=== PATIENT | female | born 1995 | race Caucasian/White ===

== ENCOUNTER 2020-01-29 06:23 | Observation (INO) | payer SELFPAY ==
[~2020-01-29] VITALS: Ht 157.5 cm; Wt 124.5 kg
[2020-01-29] MEDS ORDERED: IV NORMAL SALINE 1000ML BAG 1,000 ML IV ONE (06:45)
[2020-01-29 07:54] LABS: BILIRUBIN,URINE NEGATIVE (NEG); CLARITY,URINE CLEAR; COLOR,URINE YELLOW; NITRITE,URINE NEGATIVE (NEG); PH,URINE 5.5 (<5.0-8.0); PROTEIN,URINE 30 mg/dL (NEG-TRACE); UROBILINOGEN,URINE 0.2 mg/dL (0.2 mg/dL)
[2020-01-29 07:56] LABS: BASO # 0.1 x10^3/uL (0.0-0.2); BASO % 1 % (0-3); EOS # 0.1 x10^3/uL (0.0-0.7); EOS % 1 % (0-3); HEMATOCRIT 42.2 % (36.0-47.0); HEMOGLOBIN 13.8 g/dL (12.0-15.5); LYMPH % 27 % (24-48); MEAN CORPUSCULAR HEMOGLOBIN 30 pg (25-35); MEAN CORPUSCULAR HGB CONC 33 g/dL (31-37); MEAN CORPUSCULAR VOLUME 90 fL (79-100); MONO % 7 % (0-9); NEUT # 9.9 x10^3/uL (1.8-7.7); NEUT % 66 % (31-73); PLATELET COUNT 401 x10^3/uL (140-400); RED BLOOD COUNT 4.67 x10^6/uL (3.50-5.40); RED CELL DISTRIBUTION WIDTH 13.6 % (11.5-14.5); WHITE BLOOD COUNT 15.1 x10^3/uL (4.0-11.0)
--- NOTE | 2020-01-29 08:00 | ED.ADGEN ---
Past Medical History Past Medical History: Anxiety, Depression, GERD, Other Additional Past Medical Histor: PCOS Past Surgical History: Tonsillectomy, Other Additional Past Surgical Histo: Pelvis Fx repair Smoking Status: Never Smoker Alcohol Use: None General Adult EDM: Chief Complaint: SEIZURE HPI: HPI: Patient is a 24 year old female at approximately 6 weeks gestational age with the first . Per grandmother she had a witnessed seizure-like activity just prior to arrival. Patient has no seizure history, no history of traumatic brain injury, no recent illness.. Per EMS the patient was postictal on arrival. She is recently , has a history of PCOS and takes Metformin. Patient had second seizure in emergency department approximately 1 hour after a rrival. Patient had told her grandmother that her left leg felt weird and then her head felt weird and then began seizing for about 15 to 30 seconds. Was again postictal afterwards. Episode witnessed by nursing consistent with grand mal seizure. Review of Systems: Review of Systems: Constitutional: Denies fever or chills. [] Eyes: Denies change in visual acuity. [] HENT: Denies nasal congestion or sore throat. [] Respiratory: Denies cough or shortness of breath. [] Cardiovascular: Denies chest pain or edema. [] GI: Denies abdominal pain, nausea, vomiting, bloody stools or diarrhea. [] : Denies dysuria. [] Musculoskeletal: Denies back pain or joint pain. [] Integument: Denies rash. [] Neurologic: Denies headache, focal weakness or sensory changes. [] Endocrine: Denies polyuria or polydipsia. [] Lymphatic: Denies swollen glands. [] Psychiatric: Denies depression or anxiety. [] Current Medications: Current Medications Medications (Trade) Dose Ordered Sig/Vannessa Start Time Stop Time Status Last Admin Dose Admin Levetiracetam 500 mg/Dextrose 105 ml @ 420 mls/hr 1X ONCE 01/29/20 10:00 01/29/20 10:14 Lorazepam (Ativan Inj) 4 mg 1X ONCE 01/29/20 08:15 01/29/20 08:17 DC 01/29/20 08:10 4 MG Sodium Chloride 1,000 ml @ 1,000 mls/hr 1X ONCE 01/29/20 06:45 01/29/20 07:44 DC 01/29/20 08:16 1,000 MLS/HR Allergies: Allergies: Allergies Coded Allergies Type Severity Reaction Last Updated Verified No Known Drug Allergies 01/29/20 No Physical Exam: PE: Constitutional: Well developed, well nourished, no acute distress, non-toxic appearance. [] HENT: Normocephalic, atraumatic, bilateral external ears normal, oropharynx moist, no oral exudates, nose normal. [] Eyes: PERRLA, EOMI, conjunctiva normal, no discharge. [] Neck: Normal range of motion, no tenderness, supple, no stridor. [] Cardiovascular:Heart rate regular rhythm, no murmur [] Lungs & Thorax: Bilateral breath sounds clear to auscultation [] Abdomen: Bowel sounds normal, soft, no tenderness, no masses, no pulsatile masses. [] Skin: Warm, dry, no erythema, no rash. [] Back: No tenderness, no CVA tenderness. [] Extremities: No tenderness, no cyanosis, no clubbing, ROM intact, no edema. [] Neurologic: Alert and oriented X 3, normal motor function, normal sensory fun ction, no focal deficits noted. [] Psychologic: Affect normal, judgement normal, mood normal. [] Current Patient Data: Labs: Laboratory Tests Test 01/29/20 06:30 01/29/20 06:45 01/29/20 06:52 Urine Collection Type Unknown Urine Color Yellow Urine Clarity Clear Urine pH 5.5 (<5.0-8.0) Urine Specific [place] 1.020 (1.000-1.030) Urine Protein 30 mg/dL (NEG-TRACE) Urine Glucose (UA) Negative mg/dL (NEG) Urine Ketones (Stick) Trace mg/dL (NEG) Urine Blood Negative (NEG) Urine Nitrite Negative (NEG) Urine Bilirubin Negative (NEG) Urine Urobilinogen Dipstick 0.2 mg/dL (0.2 mg/dL) Urine Leukocyte Esterase Negative (NEG) Urine RBC 0 /HPF (0-2) Urine WBC Occ /HPF (0-4) Urine Squamous Epithelial Cells Few /LPF Urine Bacteria 0 /HPF (0-FEW) Urine Mucus Mod /LPF Urine Opiates Screen Neg (NEG) Urine Methadone Screen Neg (NEG) Urine Barbiturates Neg (NEG) Urine Phencyclidine Screen Neg (NEG) Urine Amphetamine/Methamphetamine Neg (NEG) Urine Benzodiazepines Screen Neg (NEG) Urine Cocaine Screen Neg (NEG) Urine Cannabinoids Screen Pos (NEG) Urine Ethyl Alcohol Neg (NEG) White Blood Count 15.1 x10^3/uL (4.0-11.0) H Red Blood Count 4.67 x10^6/uL (3.50-5.40) Hemoglobin 13.8 g/dL (12.0-15.5) Hematocrit 42.2 % (36.0-47.0) Mean Corpuscular Volume 90 fL (79-100) Mean Corpuscular Hemoglobin 30 pg (25-35) Mean Corpuscular Hemoglobin Concent 33 g/dL (31-37) Red Cell Distribution Width 13.6 % (11.5-14.5) Platelet Count 401 x10^3/uL (140-400) H Neutrophils (%) (Auto) 66 % (31-73) Lymphocytes (%) (Auto) 27 % (24-48) Monocytes (%) (Auto) 7 % (0-9) Eosinophils (%) (Auto) 1 % (0-3) Basophils (%) (Auto) 1 % (0-3) Neutrophils # (Auto) 9.9 x10^3/uL (1.8-7.7) H Lymphocytes # (Auto) 4.0 x10^3/uL (1.0-4.8) Monocytes # (Auto) 1.0 x10^3/uL (0.0-1.1) Eosinophils # (Auto) 0.1 x10^3/uL (0.0-0.7) Basophils # (Auto) 0.1 x10^3/uL (0.0-0.2) Maternal Serum HCG Beta Subunit 6360 mIU/mL (0-5) H Sodium Level 134 mmol/L (136-145) L Potassium Level 3.7 mmol/L (3.5-5.1) Chloride Level 100 mmol/L (98-107) Carbon Dioxide Level 21 mmol/L (21-32) Anion Gap 13 (6-14) Blood Urea Nitrogen 6 mg/dL (7-20) L Creatinine 0.7 mg/dL (0.6-1.0) Estimated GFR (Cockcroft-Gault) 101.1 BUN/Creatinine Ratio 9 (6-20) Glucose Level 116 mg/dL (70-99) H Calcium Level 9.0 mg/dL (8.5-10.1) Magnesium Level 2.4 mg/dL (1.8-2.4) Total Bilirubin 0.2 mg/dL (0.2-1.0) Aspartate Amino Transferase (AST) 21 U/L (15-37) Alanine Aminotransferase (ALT) 40 U/L (14-59) Alkaline Phosphatase 57 U/L (46-116) Total Protein 7.8 g/dL (6.4-8.2) Albumin 3.9 g/dL (3.4-5.0) Albumin/Globulin Ratio 1.0 (1.0-1.7) POC Urine HCG, Qualitative Hcg positive (Negative) Laboratory Tests 01/29/20 06:45 Laboratory Tests 01/29/20 06:45 Vital Signs: Vital Signs Date Time Temp Pulse Resp B/P (MAP) Pulse Ox O2 Delivery O2 Flow Rate FiO2 01/29/20 06:25 97.9 129 20 136/63 (87) 100 Room Air 97.9 EKG: EKG: Sinus tachycardia, normal axis, no ST elevation or depression, borderline QT interval Heart Score: Risk Factors: Risk Factors: DM, Current or recent (<one month) smoker, HTN, HLP, family history of CAD, obesity. Risk Scores: Score 0 - 3: 2.5% MACE over next 6 weeks - Discharge Home Score 4 - 6: 20.3% MACE over next 6 weeks - Admit for Clinical Observation Score 7 - 10: 72.7% MACE over next 6 weeks - Early Invasive Strategies Radiology/Procedures: Radiology/Procedures: CT HEAD WO CONTRAST Date: 01/29/2020 6:33 AM Clinical Indication: seizure Comparison: None. Technique: 5 mm axial tomographic images were obtained of the head without contrast. These were viewed on brain and bone windows. One or more of the following dose reduction techniques were utilized: Automated exposure control (AEC), Adjustment of mA and/or kV according to patient size, Use of iterative reconstruction technique such as ASiR, CT scan done according to ALARA and image gently/image wisely Findings: The brain parenchyma is normal in attenuation. No intra- or extra-axial mass or fluid collection. No acute hemorrhage. The ventricles are normal in size, shape, and morphology. The keenan-white matter junction is normal. The subarachnoid cisterns are patent. The visualized paranasal sinuses are normal. The visualized portions of the orbits and globes are normal. The mastoid air cells are clear. The farmworker grain topogram shows no lytic lesion or fracture. Impression: No acute intracranial process. [] Course & Med Decision Making: Course & Med Decision Making Pertinent Labs and Imaging studies reviewed. (See chart for details) Discussed with neurology and will dose with Keppra as it is safe in . Admit for observation for recurrent seizures. Lab work and CT head unremarkable, borderline QT prolongation on ECG. [] Dragon Disclaimer: Dragon Disclaimer: This electronic medical record was generated, in whole or in part, using a voice recognition dictation system. Departure Departure Impression: Primary Impression: Additional Impression: Seizure grand mal Disposition: 09 ADMITTED INPT THIS HOSP Admitting Physician: ISAIAS Condition: STABLE Referrals: NO PCP (PCP) Problem Qualifiers SEBASTIEN GIRALDO MD Jan 29, 2020 08:00
[2020-01-29 08:02] LABS: CREATININE 0.7 mg/dL (0.6-1.0); GFR 101.1; POTASSIUM 3.7 mmol/L (3.5-5.1)
[2020-01-29 08:08] LABS: ALBUMIN 3.9 g/dL (3.4-5.0); MAGNESIUM 2.4 mg/dL (1.8-2.4); TOTAL BILIRUBIN 0.2 mg/dL (0.2-1.0); TOTAL PROTEIN 7.8 g/dL (6.4-8.2)
[2020-01-29 08:10] LABS: BARBITURATES NEG (NEG); BENZODIAZEPINES NEG (NEG); CANNABINOIDS POS (NEG); COCAINE NEG (NEG); METHADONE NEG (NEG); OPIATES NEG (NEG); PHENCYCLIDINE NEG (NEG)
[2020-01-29 08:11] LABS: BACTERIA,URINE 0 /HPF (0-FEW); RBC,URINE 0 /HPF (0-2); WBC,URINE OCC /HPF (0-4)
[2020-01-29 08:12] LABS: AMPHETAMINE/METHAMPHETAMINE NEG (NEG)
--- NOTE | 2020-01-29 08:22 | RAD ---
CT HEAD WO CONTRAST Date: 01/29/2020 6:33 AM Clinical Indication: seizure Comparison: None. Technique: 5 mm axial tomographic images were obtained of the head without contrast. These were viewed on brain and bone windows. One or more of the following dose reduction techniques were utilized: Automated exposure control (AEC), Adjustment of mA and/or kV according to patient size, Use of iterative reconstruction technique such as ASiR, CT scan done according to ALARA and image gently/image wisely Findings: The brain parenchyma is normal in attenuation. No intra- or extra-axial mass or fluid collection. No acute hemorrhage. The ventricles are normal in size, shape, and morphology. The keenan-white matter junction is normal. The subarachnoid cisterns are patent. The visualized paranasal sinuses are normal. The visualized portions of the orbits and globes are normal. The mastoid air cells are clear. The lead advisor topogram shows no lytic lesion or fracture. Impression: No acute intracranial process. Electronically signed by: Donavon Sanchez MD (01/29/2020 8:19 AM) [id number]
[2020-01-29] MEDS ORDERED: ONDANSETRON PF 4 MG/2 ML VIAL. IV PRN (09:45)
[2020-01-29] MEDS ORDERED: ACETAMINOPHEN 325 MG TABLET. PO PRN ×2 (09:45→11:30)
[2020-01-29] MEDS ORDERED: levETIRAcetam 500 MG in IV DEXTROSE 5% 100ML 100 ML IV ONE (10:00)
[2020-01-29] MEDS ORDERED: IV DEXTROSE 5 %-0.45 % NACL 1,000 ML IV SCH (11:20)
[2020-01-29] MEDS ORDERED: ONDANSETRON PF 4 MG/2 ML VIAL. IVP PRN (11:30)
[2020-01-29] MEDS ORDERED: DOCUSATE SODIUM 100 MG CAPSULE. PO PRN (11:30)
[2020-01-29] MEDS ORDERED: SENNOSIDES 8.6 MG TABLET PO PRN (11:30)
[2020-01-29] MEDS ORDERED: DEXTROSE 50% 25 GM / 50ML DISP.SYRIN. IV PRN (11:30)
--- NOTE | 2020-01-29 11:30 | PDOC1 ---
History and Physical Date of Service: DOS: DATE: 01/29/20 TIME: 11:25 Chief Complaint: Chief Complain: Seizures History of Present Illness: HPI: 24 year old female at approximately 6 weeks gestational age with the first . Per grandmother she had a witnessed seizure-like activity just prior to arrival. Patient has no seizure history, no history of traumatic brain injury, no recent illness.. Per EMS the patient was postictal on arrival. She is recently , has a history of PCOS and takes Metformin. Patient had second seizure in emergency department approximately 1 hour after arrival. Patient had told her grandmother that her left leg felt weird and then her head felt weird and then began seizing for about 15 to 30 seconds. Was again postictal afterwards. Episode witnessed by nursing consistent with grand mal seizure. Keppra IV loading dose was given in the ED. And neurology was consulted. Seizure precaution was activated. When further questioned patient stated that she does not remember having any seizures in the past and is unsure whether she has a history of them as well. When asked about her marijuana use, patient states that she does use a vape pen with oils but is unsure whether the marijuana is synthetic or natural. Past Medical/Surgical History: PMH/PSH: Past Medical History: Anxiety, Depression, GERD, PCOS Past Surgical History: Tonsillectomy, Pelvis Fx repair Allergies: Allergies: Coded Allergies: No Known Drug Allergies (Unverified , 01/29/20) Family History: Family History: Reviewed and no relevant findings Social History: Social History: Smoking Status: Never Smoker, Cannabinoid use via Vape pen Alcohol Use: None Current Medications: Current Medications Current Medications Sodium Chloride 1,000 ml @ 1,000 mls/hr 1X ONCE IV Last administered on 01/29/20at 08:16; Start 01/29/20 at 06:45; Stop 01/29/20 at 07:44; Status DC Lorazepam (Ativan Inj) 4 mg 1X ONCE IVP Last administered on 01/29/20at 08:10; Start 01/29/20 at 08:15; Stop 01/29/20 at 08:17; Status DC Levetiracetam 500 mg/Dextrose 105 ml @ 420 mls/hr Q12HR IV ; Start 01/29/20 at 21:00; Status UNV Levetiracetam 500 mg/Dextrose 105 ml @ 420 mls/hr 1X ONCE IV Last administered on 01/29/20at 09:57; Start 01/29/20 at 10:00; Stop 01/29/20 at 10:14; Status DC Ondansetron HCl (Zofran) 4 mg PRN Q8HRS PRN IV NAUSEA/VOMITING; Start 01/29/20 at 09:45; Stop 01/30/20 at 09:44 Acetaminophen (Tylenol) 650 mg PRN Q4HRS PRN PO FEVER > 100.3'F; Start 01/29/20 at 09:45; Stop 01/30/20 at 09:44 ROS: Review of Systems Review of System REVIEW OF SYSTEMS: GENERAL: Denies weakness SKIN: No bruising, hair changes or rashes. EYES: No blurred, double or loss of vision. NOSE AND THROAT: No history of nosebleeds, hoarseness or sore throat. HEART: No history of palpitations, chest pain or shortness of breath on exertion. LUNGS: Denies cough, hemoptysis, wheezing or shortness of breath. GASTROINTESTINAL: Denies changes in appetite, nausea, vomiting, diarrhea or constipation. GENITOURINARY: No history of frequency, urgency, hesitancy or nocturia. NEUROLOGIC: Denies history of numbness, tingling, or tremor. PSYCHIATRIC: No history of panic, anxiety or depression. ENDOCRINE: No history of heat or cold intolerance, polyuria or polydipsia. EXTREMITIES: Denies joint pain, pain on walking or stiffness. Physical Exam: Vital Signs: Vital Signs Date Time Temp Pulse Resp B/P (MAP) Pulse Ox O2 Delivery O2 Flow Rate FiO2 01/29/20 06:25 97.9 129 20 136/63 (87) 100 Room Air 97.9 Physcial Exam: GEN: No apparent distress. Alert and oriented HEENT: Normal cephalic, atraumatic, external auditory canals are patent EYES: Extraocular muscles are intact, pupil are equally round and reactive to light and accommodation MUSCULOSKELETAL: Well developed , well nourished, good range of motion ENDOCRINE: No thyromegaly was palpated LYMPHATICS: No cervical chain or axillary nodes were noted HEMATOPOIETIC: No bruising NECK: Supple, no JVD, no thyromegaly was noted LUNGS: Clear to auscultation in all lung corral without rhonchi or wheezing HEART: RRR, S!, S2 present. Peripheral pulses intact, no obvious murmurs noted ABDOMEN: Soft, nontender. Positive bowel sounds, no organomegaly, normal bowel sounds EXTREMITIES: Without clubbing, cyanosis, or edema. Pedal pulses intact. Negative Homans sign NEUROLOGIC: Normal speech and tone. A&O x 3, moves all extremities, no obvious focal deficits PSYCHIATRIC: Normal affect, normal mood. Stable SKIN: No ulcerations or rashes, good skin turgor, no jaundice VASCULAR: Good capillary refill, neurovascular bundle appears to be intact Labs: Labs: Laboratory Tests Test 01/29/20 06:30 01/29/20 06:45 01/29/20 06:52 Urine Collection Type Unknown Urine Color Yellow Urine Clarity Clear Urine pH 5.5 (<5.0-8.0) Urine Specific [place] 1.020 (1.000-1.030) Urine Protein 30 mg/dL (NEG-TRACE) Urine Glucose (UA) Negative mg/dL (NEG) Urine Ketones (Stick) Trace mg/dL (NEG) Urine Blood Negative (NEG) Urine Nitrite Negative (NEG) Urine Bilirubin Negative (NEG) Urine Urobilinogen Dipstick 0.2 mg/dL (0.2 mg/dL) Urine Leukocyte Esterase Negative (NEG) Urine RBC 0 /HPF (0-2) Urine WBC Occ /HPF (0-4) Urine Squamous Epithelial Cells Few /LPF Urine Bacteria 0 /HPF (0-FEW) Urine Mucus Mod /LPF Urine Opiates Screen Neg (NEG) Urine Methadone Screen Neg (NEG) Urine Barbiturates Neg (NEG) Urine Phencyclidine Screen Neg (NEG) Urine Amphetamine/Methamphetamine Neg (NEG) Urine Benzodiazepines Screen Neg (NEG) Urine Cocaine Screen Neg (NEG) Urine Cannabinoids Screen Pos (NEG) Urine Ethyl Alcohol Neg (NEG) White Blood Count 15.1 x10^3/uL (4.0-11.0) Red Blood Count 4.67 x10^6/uL (3.50-5.40) Hemoglobin 13.8 g/dL (12.0-15.5) Hematocrit 42.2 % (36.0-47.0) Mean Corpuscular Volume 90 fL (79-100) Mean Corpuscular Hemoglobin 30 pg (25-35) Mean Corpuscular Hemoglobin Concent 33 g/dL (31-37) Red Cell Distribution Width 13.6 % (11.5-14.5) Platelet Count 401 x10^3/uL (140-400) Neutrophils (%) (Auto) 66 % (31-73) Lymphocytes (%) (Auto) 27 % (24-48) Monocytes (%) (Auto) 7 % (0-9) Eosinophils (%) (Auto) 1 % (0-3) Basophils (%) (Auto) 1 % (0-3) Neutrophils # (Auto) 9.9 x10^3/uL (1.8-7.7) Lymphocytes # (Auto) 4.0 x10^3/uL (1.0-4.8) Monocytes # (Auto) 1.0 x10^3/uL (0.0-1.1) Eosinophils # (Auto) 0.1 x10^3/uL (0.0-0.7) Basophils # (Auto) 0.1 x10^3/uL (0.0-0.2) Maternal Serum HCG Beta Subunit 6360 mIU/mL (0-5) Sodium Level 134 mmol/L (136-145) Potassium Level 3.7 mmol/L (3.5-5.1) Chloride Level 100 mmol/L (98-107) Carbon Dioxide Level 21 mmol/L (21-32) Anion Gap 13 (6-14) Blood Urea Nitrogen 6 mg/dL (7-20) Creatinine 0.7 mg/dL (0.6-1.0) Estimated GFR (Cockcroft-Gault) 101.1 BUN/Creatinine Ratio 9 (6-20) Glucose Level 116 mg/dL (70-99) Calcium Level 9.0 mg/dL (8.5-10.1) Magnesium Level 2.4 mg/dL (1.8-2.4) Total Bilirubin 0.2 mg/dL (0.2-1.0) Aspartate Amino Transf (AST/SGOT) 21 U/L (15-37) Alanine Aminotransferase (ALT/SGPT) 40 U/L (14-59) Alkaline Phosphatase 57 U/L (46-116) Total Protein 7.8 g/dL (6.4-8.2) Albumin 3.9 g/dL (3.4-5.0) Albumin/Globulin Ratio 1.0 (1.0-1.7) Bedside Urine HCG, Qualitative Hcg positive (Negative) Laboratory Tests Test 01/29/20 06:30 01/29/20 06:45 01/29/20 06:52 Urine Collection Type Unknown Urine Color Yellow Urine Clarity Clear Urine pH 5.5 (<5.0-8.0) Urine Specific [place] 1.020 (1.000-1.030) Urine Protein 30 mg/dL (NEG-TRACE) Urine Glucose (UA) Negative mg/dL (NEG) Urine Ketones (Stick) Trace mg/dL (NEG) Urine Blood Negative (NEG) Urine Nitrite Negative (NEG) Urine Bilirubin Negative (NEG) Urine Urobilinogen Dipstick 0.2 mg/dL (0.2 mg/dL) Urine Leukocyte Esterase Negative (NEG) Urine RBC 0 /HPF (0-2) Urine WBC Occ /HPF (0-4) Urine Squamous Epithelial Cells Few /LPF Urine Bacteria 0 /HPF (0-FEW) Urine Mucus Mod /LPF Urine Opiates Screen Neg (NEG) Urine Methadone Screen Neg (NEG) Urine Barbiturates Neg (NEG) Urine Phencyclidine Screen Neg (NEG) Urine Amphetamine/Methamphetamine Neg (NEG) Urine Benzodiazepines Screen Neg (NEG) Urine Cocaine Screen Neg (NEG) Urine Cannabinoids Screen Pos (NEG) Urine Ethyl Alcohol Neg (NEG) White Blood Count 15.1 x10^3/uL (4.0-11.0) Red Blood Count 4.67 x10^6/uL (3.50-5.40) Hemoglobin 13.8 g/dL (12.0-15.5) Hematocrit 42.2 % (36.0-47.0) Mean Corpuscular Volume 90 fL (79-100) Mean Corpuscular Hemoglobin 30 pg (25-35) Mean Corpuscular Hemoglobin Concent 33 g/dL (31-37) Red Cell Distribution Width 13.6 % (11.5-14.5) Platelet Count 401 x10^3/uL (140-400) Neutrophils (%) (Auto) 66 % (31-73) Lymphocytes (%) (Auto) 27 % (24-48) Monocytes (%) (Auto) 7 % (0-9) Eosinophils (%) (Auto) 1 % (0-3) Basophils (%) (Auto) 1 % (0-3) Neutrophils # (Auto) 9.9 x10^3/uL (1.8-7.7) Lymphocytes # (Auto) 4.0 x10^3/uL (1.0-4.8) Monocytes # (Auto) 1.0 x10^3/uL (0.0-1.1) Eosinophils # (Auto) 0.1 x10^3/uL (0.0-0.7) Basophils # (Auto) 0.1 x10^3/uL (0.0-0.2) Maternal Serum HCG Beta Subunit 6360 mIU/mL (0-5) Sodium Level 134 mmol/L (136-145) Potassium Level 3.7 mmol/L (3.5-5.1) Chloride Level 100 mmol/L (98-107) Carbon Dioxide Level 21 mmol/L (21-32) Anion Gap 13 (6-14) Blood Urea Nitrogen 6 mg/dL (7-20) Creatinine 0.7 mg/dL (0.6-1.0) Estimated GFR (Cockcroft-Gault) 101.1 BUN/Creatinine Ratio 9 (6-20) Glucose Level 116 mg/dL (70-99) Calcium Level 9.0 mg/dL (8.5-10.1) Magnesium Level 2.4 mg/dL (1.8-2.4) Total Bilirubin 0.2 mg/dL (0.2-1.0) Aspartate Amino Transf (AST/SGOT) 21 U/L (15-37) Alanine Aminotransferase (ALT/SGPT) 40 U/L (14-59) Alkaline Phosphatase 57 U/L (46-116) Total Protein 7.8 g/dL (6.4-8.2) Albumin 3.9 g/dL (3.4-5.0) Albumin/Globulin Ratio 1.0 (1.0-1.7) Bedside Urine HCG, Qualitative Hcg positive (Negative) Images: Images CT headno acute intracranial process Assessment/Plan Assessment/Plan Status epilepticus likely due to synthetic marijuana Cannabinoid abuse First trimester Admit to medicine for further management Neurology consult IV Keppra loading dose and maintenance Ambulation for DVT prophylaxis Protonix GI prophylaxis ADA diet Full code Discussed with RN and SW Disposition pending neurology evaluation Surrogate decision maker is Carline Shea Justifications for Admission Other Justification Seizure JESSICA HAWKINS MD Jan 29, 2020 11:30
--- NOTE | 2020-01-29 12:47 | PDOC2 ---
NEUROLOGY CONSULT Date of Service DOS: DATE: 01/29/20 TIME: 12:43 Reason for Consult Reason for Consult: Seizure Referring Physician Referring Physician: Dr. Mitchell Source Source: Caregiver (Grandmother), Chart review, Patient History of Present Illness History of Present Illness The patient is a 24-year-old right-handed female visiting her with her grandmother from [place]. Patient had a witnessed seizure this morning and again a second 1 in the emergency department. Patient had a premonition of paresthesias before the second seizure. She was postictal. She is 6 weeks . There is no history of stroke, seizure, head injury, or family history of seizure. I discussed the case, the patient has received IV Keppra. 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, rare marijuana, no alcohol or tobacco, single Current Medications Current Medications Current Medications Sodium Chloride 1,000 ml @ 1,000 mls/hr 1X ONCE IV Last administered on 01/29/20at 08:16; Start 01/29/20 at 06:45; Stop 01/29/20 at 07:44; Status DC Lorazepam (Ativan Inj) 4 mg 1X ONCE IVP Last administered on 01/29/20at 08:10; Start 01/29/20 at 08:15; Stop 01/29/20 at 08:17; Status DC Levetiracetam 500 mg/Dextrose 105 ml @ 420 mls/hr Q12HR IV ; Start 01/29/20 at 21:00 Levetiracetam 500 mg/Dextrose 105 ml @ 420 mls/hr 1X ONCE IV Last administered on 01/29/20at 09:57; Start 01/29/20 at 10:00; Stop 01/29/20 at 10:14; Status DC Ondansetron HCl (Zofran) 4 mg PRN Q8HRS PRN IV NAUSEA/VOMITING; Start 01/29/20 at 09:45; Stop 01/30/20 at 09:44 Acetaminophen (Tylenol) 650 mg PRN Q4HRS PRN PO FEVER > 100.3'F; Start 01/29/20 at 09:45; Stop 01/30/20 at 09:44 Sennosides (Senna) 17.2 mg PRN BID PRN PO CONSTIPATION; Start 01/29/20 at 11:30 Docusate Sodium (Colace) 100 mg PRN DAILY PRN PO HARD STOOLS; Start 01/29/20 at 11:30 Ondansetron HCl (Zofran) 4 mg PRN Q6HRS PRN IVP NAUSEA/VOMITING; Start 01/29/20 at 11:30 Dextrose (Dextrose 50%-Water Syringe) 12.5 gm PRN Q15MIN PRN IV SEE COMMENTS; Start 01/29/20 at 11:30 Dextrose/Sodium Chloride 1,000 ml @ 100 mls/hr Q10H IV ; Start 01/29/20 at 11:20 Acetaminophen (Tylenol) 650 mg PRN Q4HRS PRN PO TEMP OVER 100.4F OR MILD PAIN; Start 01/29/20 at 11:30 Lorazepam (Ativan Inj) 4 mg PRN Q4HRS PRN IVP SEIZURE; Start 01/29/20 at 11:30 Allergies Allergies: Coded Allergies: No Known Drug Allergies (Unverified , 01/29/20) ROS Review of System Negative for fever, chills, weight loss, shortness of breath, chest pain, indigestion, hematochezia, melena, and dysuria. Full 14-point review of systems is negative. Physical Exam Physical Examination General: Well-developed, well-nourished white female in no acute distress HEENT: Normocephalic andatraumatic. Tympanic membranes clear.Temporal arteri espulsatile and nontender.Fundoscopic exam unremarkable Neck: Supple without bruit, no meningismus Musculoskeletal: Stability:see neurologic. Gait exam:see neurologic. Tone:see neurologic.Strength:see neurologic. Neurological: Mental Status:intact, orientation, memory, attention span/concentration, language, fund of knowledge normal, a little groggy and unclear with history. Cranial Nerves:Pupils equal and reactive to light, extraocular movements areintact, visual corral are full to confrontation. Facial sensation is normal. There is no facial asymmetry. Vestibulo-ocular reflex is intact. Palate elevates and tongue protrudes in midline. All other cranial related problems are negative except as mentioned before.Reflexes:2+ and symmetric with flexor plantar responses. Motor:5/5 strength with normal tone and bulk. Coordination:Finger- nose finger and [id number] testing are normal. Rapid alternating movements and fine finger movements are intact. Gait:Not tested. Sensory:Normal pinprick, vibration, light touch, proprioception. Vitals VITALS Vital Signs Date Time Temp Pulse Resp B/P (MAP) Pulse Ox O2 Delivery O2 Flow Rate FiO2 01/29/20 06:25 97.9 129 20 136/63 (87) 100 Room Air 97.9 Labs Labs Laboratory Tests Test 01/29/20 06:30 01/29/20 06:45 01/29/20 06:52 Urine Collection Type Unknown Urine Color Yellow Urine Clarity Clear Urine pH 5.5 (<5.0-8.0) Urine Specific [place] 1.020 (1.000-1.030) Urine Protein 30 mg/dL (NEG-TRACE) Urine Glucose (UA) Negative mg/dL (NEG) Urine Ketones (Stick) Trace mg/dL (NEG) Urine Blood Negative (NEG) Urine Nitrite Negative (NEG) Urine Bilirubin Negative (NEG) Urine Urobilinogen Dipstick 0.2 mg/dL (0.2 mg/dL) Urine Leukocyte Esterase Negative (NEG) Urine RBC 0 /HPF (0-2) Urine WBC Occ /HPF (0-4) Urine Squamous Epithelial Cells Few /LPF Urine Bacteria 0 /HPF (0-FEW) Urine Mucus Mod /LPF Urine Opiates Screen Neg (NEG) Urine Methadone Screen Neg (NEG) Urine Barbiturates Neg (NEG) Urine Phencyclidine Screen Neg (NEG) Urine Amphetamine/Methamphetamine Neg (NEG) Urine Benzodiazepines Screen Neg (NEG) Urine Cocaine Screen Neg (NEG) Urine Cannabinoids Screen Pos (NEG) Urine Ethyl Alcohol Neg (NEG) White Blood Count 15.1 x10^3/uL (4.0-11.0) Red Blood Count 4.67 x10^6/uL (3.50-5.40) Hemoglobin 13.8 g/dL (12.0-15.5) Hematocrit 42.2 % (36.0-47.0) Mean Corpuscular Volume 90 fL (79-100) Mean Corpuscular Hemoglobin 30 pg (25-35) Mean Corpuscular Hemoglobin Concent 33 g/dL (31-37) Red Cell Distribution Width 13.6 % (11.5-14.5) Platelet Count 401 x10^3/uL (140-400) Neutrophils (%) (Auto) 66 % (31-73) Lymphocytes (%) (Auto) 27 % (24-48) Monocytes (%) (Auto) 7 % (0-9) Eosinophils (%) (Auto) 1 % (0-3) Basophils (%) (Auto) 1 % (0-3) Neutrophils # (Auto) 9.9 x10^3/uL (1.8-7.7) Lymphocytes # (Auto) 4.0 x10^3/uL (1.0-4.8) Monocytes # (Auto) 1.0 x10^3/uL (0.0-1.1) Eosinophils # (Auto) 0.1 x10^3/uL (0.0-0.7) Basophils # (Auto) 0.1 x10^3/uL (0.0-0.2) Maternal Serum HCG Beta Subunit 6360 mIU/mL (0-5) Sodium Level 134 mmol/L (136-145) Potassium Level 3.7 mmol/L (3.5-5.1) Chloride Level 100 mmol/L (98-107) Carbon Dioxide Level 21 mmol/L (21-32) Anion Gap 13 (6-14) Blood Urea Nitrogen 6 mg/dL (7-20) Creatinine 0.7 mg/dL (0.6-1.0) Estimated GFR (Cockcroft-Gault) 101.1 BUN/Creatinine Ratio 9 (6-20) Glucose Level 116 mg/dL (70-99) Calcium Level 9.0 mg/dL (8.5-10.1) Magnesium Level 2.4 mg/dL (1.8-2.4) Total Bilirubin 0.2 mg/dL (0.2-1.0) Aspartate Amino Transf (AST/SGOT) 21 U/L (15-37) Alanine Aminotransferase (ALT/SGPT) 40 U/L (14-59) Alkaline Phosphatase 57 U/L (46-116) Total Protein 7.8 g/dL (6.4-8.2) Albumin 3.9 g/dL (3.4-5.0) Albumin/Globulin Ratio 1.0 (1.0-1.7) Bedside Urine HCG, Qualitative Hcg positive (Negative) Laboratory Tests Test 01/29/20 06:30 01/29/20 06:45 01/29/20 06:52 Urine Collection Type Unknown Urine Color Yellow Urine Clarity Clear Urine pH 5.5 (<5.0-8.0) Urine Specific [place] 1.020 (1.000-1.030) Urine Protein 30 mg/dL (NEG-TRACE) Urine Glucose (UA) Negative mg/dL (NEG) Urine Ketones (Stick) Trace mg/dL (NEG) Urine Blood Negative (NEG) Urine Nitrite Negative (NEG) Urine Bilirubin Negative (NEG) Urine Urobilinogen Dipstick 0.2 mg/dL (0.2 mg/dL) Urine Leukocyte Esterase Negative (NEG) Urine RBC 0 /HPF (0-2) Urine WBC Occ /HPF (0-4) Urine Squamous Epithelial Cells Few /LPF Urine Bacteria 0 /HPF (0-FEW) Urine Mucus Mod /LPF Urine Opiates Screen Neg (NEG) Urine Methadone Screen Neg (NEG) Urine Barbiturates Neg (NEG) Urine Phencyclidine Screen Neg (NEG) Urine Amphetamine/Methamphetamine Neg (NEG) Urine Benzodiazepines Screen Neg (NEG) Urine Cocaine Screen Neg (NEG) Urine Cannabinoids Screen Pos (NEG) Urine Ethyl Alcohol Neg (NEG) White Blood Count 15.1 x10^3/uL (4.0-11.0) Red Blood Count 4.67 x10^6/uL (3.50-5.40) Hemoglobin 13.8 g/dL (12.0-15.5) Hematocrit 42.2 % (36.0-47.0) Mean Corpuscular Volume 90 fL (79-100) Mean Corpuscular Hemoglobin 30 pg (25-35) Mean Corpuscular Hemoglobin Concent 33 g/dL (31-37) Red Cell Distribution Width 13.6 % (11.5-14.5) Platelet Count 401 x10^3/uL (140-400) Neutrophils (%) (Auto) 66 % (31-73) Lymphocytes (%) (Auto) 27 % (24-48) Monocytes (%) (Auto) 7 % (0-9) Eosinophils (%) (Auto) 1 % (0-3) Basophils (%) (Auto) 1 % (0-3) Neutrophils # (Auto) 9.9 x10^3/uL (1.8-7.7) Lymphocytes # (Auto) 4.0 x10^3/uL (1.0-4.8) Monocytes # (Auto) 1.0 x10^3/uL (0.0-1.1) Eosinophils # (Auto) 0.1 x10^3/uL (0.0-0.7) Basophils # (Auto) 0.1 x10^3/uL (0.0-0.2) Maternal Serum HCG Beta Subunit 6360 mIU/mL (0-5) Sodium Level 134 mmol/L (136-145) Potassium Level 3.7 mmol/L (3.5-5.1) Chloride Level 100 mmol/L (98-107) Carbon Dioxide Level 21 mmol/L (21-32) Anion Gap 13 (6-14) Blood Urea Nitrogen 6 mg/dL (7-20) Creatinine 0.7 mg/dL (0.6-1.0) Estimated GFR (Cockcroft-Gault) 101.1 BUN/Creatinine Ratio 9 (6-20) Glucose Level 116 mg/dL (70-99) Calcium Level 9.0 mg/dL (8.5-10.1) Magnesium Level 2.4 mg/dL (1.8-2.4) Total Bilirubin 0.2 mg/dL (0.2-1.0) Aspartate Amino Transf (AST/SGOT) 21 U/L (15-37) Alanine Aminotransferase (ALT/SGPT) 40 U/L (14-59) Alkaline Phosphatase 57 U/L (46-116) Total Protein 7.8 g/dL (6.4-8.2) Albumin 3.9 g/dL (3.4-5.0) Albumin/Globulin Ratio 1.0 (1.0-1.7) Bedside Urine HCG, Qualitative Hcg positive (Negative) Images Images CT HEAD WO CONTRAST Date: 01/29/2020 6:33 AM Clinical Indication: seizure Comparison: None. Technique: 5 mm axial tomographic images were obtained of the head without contrast. These were viewed on brain and bone windows. One or more of the following dose reduction techniques were utilized: Automated exposure control (AEC), Adjustment of mA and/or kV according to patient size, Use of iterative reconstruction technique such as ASiR, CT scan done according to ALARA and image gently/image wisely Findings: The brain parenchyma is normal in attenuation. No intra- or extra-axial mass or fluid collection. No acute hemorrhage. The ventricles are normal in size, shape, and morphology. The keenan-white matter junction is normal. The subarachnoid cisterns are patent. The visualized paranasal sinuses are normal. The visualized portions of the orbits and globes are normal. The mastoid air cells are clear. The stage builder topogram shows no lytic lesion or fracture. Impression: No acute intracranial process. Assessment/Plan Assessment/Plan Impression: New onset of seizures, no obvious cause, doubt that this is -related. Recommendations: Continue levetiracetam, discussed risk, benefits, alternatives, especially in relation to . MRI of the brain, I suggest waiting until she has finished the first trimester Electroencephalogram I discussed seizure precautions including no driving for 6 months. I discussed that marijuana can sometimes cause seizures. Aim for discharge as soon as tomorrow Fully discussed with patient and grandmother. Thank you for letting me help with the patient's care. CECILIO MAR MD Jan 29, 2020 12:47
[2020-01-29 15:00] VITALS: BP 125/64
--- NOTE | 2020-01-29 16:26 | EEG ---
DATE OF SERVICE: 01/29/2020 ELECTROENCEPHALOGRAM REPORT EEG NUMBER: [id number] OBJECTIVE: The patient is a 24-year-old female with new seizure. DESCRIPTION: This is a digital study. Electrodes are placed according to the international 10-20 system. Bipolar and referential montages are available. Activation procedures typically include hyperventilation and intermittent photic stimulation. INTERPRETATION: The waking background consists of 9-10 Hz, 50-100 microvolt activity, symmetrically distributed over parietooccipital regions and reactive to eye opening. Hyperventilation and intermittent photic stimulation are noncontributory. Stage 2 sleep is achieved with normal electroencephalogram patterns. All computer-identified abnormalities are reviewed and none are actually abnormal. Thank you for letting us help with the patient's care. ADDENDUM IMPRESSION: This electroencephalogram with the patient awake and asleep is within normal limits. There is no focal, paroxysmal, or epileptiform activity. electroencephalogram with the patient awake and asleep is within normal limits. There is no focal, paroxysmal, or epileptiform activity. Thank you for letting us help with the patient's care. you for letting us help with the patient's care. CECILIO MAR MD DR: LYNDSEY/zina JOB#: [id number] / [id number] JESSICA Luna MD
[2020-01-29] MEDS ORDERED: BUSP10TA PO (17:57)
[2020-01-29 19:00] VITALS: BP 120/62
[2020-01-29] MEDS: levETIRAcetam 500 MG TABLET PO SCH (20:35)
[2020-01-29] MEDS ORDERED: levETIRAcetam 500 MG in IV DEXTROSE 5% 100ML 100 ML IV SCH (21:00)
[2020-01-29] MEDS ORDERED: VENL75TA PO (22:29)
[2020-01-29] MEDS ORDERED: CYCL10TA2 PO (22:29)
[2020-01-29] MEDS ORDERED: PNV1TABL78 PO (22:29)
[2020-01-29] MEDS ORDERED: CETI10TA16 PO (22:29)
[2020-01-29] MEDS ORDERED: METF500T16 PO (22:29)
[2020-01-29] MEDS ORDERED: FAMO20TA5 PO (22:29)
[2020-01-29 23:00] VITALS: BP 110/47
[2020-01-30 03:00] VITALS: BP 112/53
[2020-01-30 07:36] LABS: BASO % 0 % (0-3); EOS # 0.1 x10^3/uL (0.0-0.7); EOS % 1 % (0-3); HEMATOCRIT 36.7 % (36.0-47.0); HEMOGLOBIN 12.3 g/dL (12.0-15.5); LYMPH # 2.8 x10^3/uL (1.0-4.8); LYMPH % 27 % (24-48); MEAN CORPUSCULAR HEMOGLOBIN 30 pg (25-35); MEAN CORPUSCULAR HGB CONC 34 g/dL (31-37); MEAN CORPUSCULAR VOLUME 89 fL (79-100); MONO # 0.9 x10^3/uL (0.0-1.1); MONO % 8 % (0-9); NEUT # 6.7 x10^3/uL (1.8-7.7); NEUT % 64 % (31-73); PLATELET COUNT 321 x10^3/uL (140-400); RED BLOOD COUNT 4.11 x10^6/uL (3.50-5.40); RED CELL DISTRIBUTION WIDTH 13.7 % (11.5-14.5); WHITE BLOOD COUNT 10.5 x10^3/uL (4.0-11.0)
[2020-01-30 07:38] VITALS: BP 121/68
[2020-01-30] MEDS: levETIRAcetam 500 MG TABLET PO SCH (07:55)
[2020-01-30 08:03] LABS: CALCIUM 8.3 mg/dL (8.5-10.1); CREATININE 0.5 mg/dL (0.6-1.0); GFR 149.1; MAGNESIUM 2.3 mg/dL (1.8-2.4); PHOSPHORUS 2.9 mg/dL (2.6-4.7); POTASSIUM 3.3 mmol/L (3.5-5.1)
--- NOTE | 2020-01-30 08:23 | PDOC ---
PROGRESS NOTES Date of Service: DATE: 01/30/20 TIME: 08:23 Chief Complaint Chief Complaint Images: Images CT headno acute intracranial process discharge dx Assessment/Plan Status epilepticus likely due to synthetic marijuana Cannabinoid abuse First trimester hypokalemia on replacement plan Admit to medicine Neurology consult IV Keppra loading dose and maintenance Ambulation for DVT prophylaxis Protonix GI prophylaxis ADA diet Full code Discussed with RN and SW Disposition pending neurology evaluation Surrogate decision maker is Carline Shea DISCUSSED NEED TO STOP THC USE D/C PLANNING 35 MIN Justifications for Admission Justifications for Admission Other Justification Seizure History of Present Illness History of Present Illness History of Present Illness: HPI: 24 year old female at approximately 6 weeks gestational age with the first . Per grandmother she had a witnessed seizure-like activity just prior to arrival. Patient has no seizure history, no history of traumatic brain injury, no recent illness.. Per EMS the patient was postictal on arrival. She is recently , has a history of PCOS and takes Metformin. Patient had second seizure in emergency department approximately 1 hour after arrival. Patient had told her grandmother that her left leg felt weird and then her head felt weird and then began seizing for about 15 to 30 seconds. Was again postictal afterwards. Episode witnessed by nursing consistent with grand mal seizure. Keppra IV loading dose was given in the ED. And neurology was consulted. Seizure precaution was activated. When further questioned patient stated that she does not remember having any seizures in the past and is unsure whether she has a history of them as well. When asked about her marijuana use, patient states that she does use a vape pen with oils but is unsure whether the marijuana is synthetic or natural. Past Medical/Surgical History: PMH/PSH: Past Medical History: Anxiety, Depression, GERD, PCOS Past Surgical History: Tonsillectomy, Pelvis Fx repair Allergies: Allergies: Coded Allergies: No Known Drug Allergies (Unverified , 01/29/20) Family History: Family History: Reviewed and no relevant findings Social History: Social History: Smoking Status: Never Smoker, Cannabinoid use via Vape pen Alcohol Use: None Vitals Vitals Vital Signs Date Time Temp Pulse Resp B/P (MAP) Pulse Ox O2 Delivery O2 Flow Rate FiO2 01/30/20 07:38 98.5 88 18 121/68 (85) 99 Room Air 98.5 Physical Exam Physical Exam Physcial Exam: GEN: No apparent distress. Alert and oriented HEENT: Normal cephalic, atraumatic, external auditory canals are patent EYES: Extraocular muscles are intact, pupil are equally round and reactive to light and accommodation MUSCULOSKELETAL: Well developed , well nourished, good range of motion ENDOCRINE: No thyromegaly was palpated LYMPHATICS: No cervical chain or axillary nodes were noted HEMATOPOIETIC: No bruising NECK: Supple, no JVD, no thyromegaly was noted LUNGS: Clear to auscultation in all lung corral without rhonchi or wheezing HEART: RRR, S!, S2 present. Peripheral pulses intact, no obvious murmurs noted ABDOMEN: Soft, nontender. Positive bowel sounds, no organomegaly, normal bowel sounds EXTREMITIES: Without clubbing, cyanosis, or edema. Pedal pulses intact. Negative Homans sign NEUROLOGIC: Normal speech and tone. A&O x 3, moves all extremities, no obvious focal deficits PSYCHIATRIC: Normal affect, normal mood. Stable SKIN: No ulcerations or rashes, good skin turgor, no jaundice VASCULAR: Good capillary refill, neurovascular bundle appears to be intact General: Alert, Oriented X3, Cooperative, No acute distress Heart: Regular rate, No murmurs Lungs: Clear Abdomen: Normal bowel sounds, Soft Extremities: No cyanosis Labs LABS CT HEAD WO CONTRAST Date: 01/29/2020 6:33 AM Clinical Indication: seizure Comparison: None. Technique: 5 mm axial tomographic images were obtained of the head without contrast. These were viewed on brain and bone windows. One or more of the following dose reduction techniques were utilized: Automated exposure control (AEC), Adjustment of mA and/or kV according to patient size, Use of iterative reconstruction technique such as ASiR, CT scan done according to ALARA and image gently/image wisely Findings: The brain parenchyma is normal in attenuation. No intra- or extra-axial mass or fluid collection. No acute hemorrhage. The ventricles are normal in size, shape, and morphology. The keenan-white matter junction is normal. The subarachnoid cisterns are patent. The visualized paranasal sinuses are normal. The visualized portions of the orbits and globes are normal. The mastoid air cells are clear. The chief digital media officer topogram shows no lytic lesion or fracture. Impression: No acute intracranial process. Electronically signed by: Merly Sanchez MD (01/29/2020 8:19 AM) [id number] DICTATED and SIGNED BY: MERLY SANCHEZ MD DATE: 01/29/20818 Laboratory Tests Test 01/30/20 07:10 White Blood Count 10.5 x10^3/uL (4.0-11.0) Red Blood Count 4.11 x10^6/uL (3.50-5.40) Hemoglobin 12.3 g/dL (12.0-15.5) Hematocrit 36.7 % (36.0-47.0) Mean Corpuscular Volume 89 fL (79-100) Mean Corpuscular Hemoglobin 30 pg (25-35) Mean Corpuscular Hemoglobin Concent 34 g/dL (31-37) Red Cell Distribution Width 13.7 % (11.5-14.5) Platelet Count 321 x10^3/uL (140-400) Neutrophils (%) (Auto) 64 % (31-73) Lymphocytes (%) (Auto) 27 % (24-48) Monocytes (%) (Auto) 8 % (0-9) Eosinophils (%) (Auto) 1 % (0-3) Basophils (%) (Auto) 0 % (0-3) Neutrophils # (Auto) 6.7 x10^3/uL (1.8-7.7) Lymphocytes # (Auto) 2.8 x10^3/uL (1.0-4.8) Monocytes # (Auto) 0.9 x10^3/uL (0.0-1.1) Eosinophils # (Auto) 0.1 x10^3/uL (0.0-0.7) Basophils # (Auto) 0.0 x10^3/uL (0.0-0.2) Sodium Level 136 mmol/L (136-145) Potassium Level 3.3 mmol/L (3.5-5.1) Chloride Level 104 mmol/L (98-107) Carbon Dioxide Level 24 mmol/L (21-32) Anion Gap 8 (6-14) Blood Urea Nitrogen 4 mg/dL (7-20) Creatinine 0.5 mg/dL (0.6-1.0) Estimated GFR (Cockcroft-Gault) 149.1 Glucose Level 93 mg/dL (70-99) Calcium Level 8.3 mg/dL (8.5-10.1) Phosphorus Level 2.9 mg/dL (2.6-4.7) Magnesium Level 2.3 mg/dL (1.8-2.4) Assessment and Plan Assessmemt and Plan Problems Medical Problems: (1) Status: Acute (2) Seizure grand mal Status: Acute Comment Review of Relevant I have reviewed the following items viridiana (where applicable) has been applied. Labs Laboratory Tests Test 01/29/20 06:30 01/29/20 06:45 01/29/20 06:52 01/30/20 07:10 Urine Collection Type Unknown Urine Color Yellow Urine Clarity Clear Urine pH 5.5 (<5.0-8.0) Urine Specific [place] 1.020 (1.000-1.030) Urine Protein 30 mg/dL (NEG-TRACE) Urine Glucose (UA) Negative mg/dL (NEG) Urine Ketones (Stick) Trace mg/dL (NEG) Urine Blood Negative (NEG) Urine Nitrite Negative (NEG) Urine Bilirubin Negative (NEG) Urine Urobilinogen Dipstick 0.2 mg/dL (0.2 mg/dL) Urine Leukocyte Esterase Negative (NEG) Urine RBC 0 /HPF (0-2) Urine WBC Occ /HPF (0-4) Urine Squamous Epithelial Cells Few /LPF Urine Bacteria 0 /HPF (0-FEW) Urine Mucus Mod /LPF Urine Opiates Screen Neg (NEG) Urine Methadone Screen Neg (NEG) Urine Barbiturates Neg (NEG) Urine Phencyclidine Screen Neg (NEG) Urine Amphetamine/Methamphetamine Neg (NEG) Urine Benzodiazepines Screen Neg (NEG) Urine Cocaine Screen Neg (NEG) Urine Cannabinoids Screen Pos (NEG) Urine Ethyl Alcohol Neg (NEG) White Blood Count 15.1 x10^3/uL (4.0-11.0) 10.5 x10^3/uL (4.0-11.0) Red Blood Count 4.67 x10^6/uL (3.50-5.40) 4.11 x10^6/uL (3.50-5.40) Hemoglobin 13.8 g/dL (12.0-15.5) 12.3 g/dL (12.0-15.5) Hematocrit 42.2 % (36.0-47.0) 36.7 % (36.0-47.0) Mean Corpuscular Volume 90 fL (79-100) 89 fL (79-100) Mean Corpuscular Hemoglobin 30 pg (25-35) 30 pg (25-35) Mean Corpuscular Hemoglobin Concent 33 g/dL (31-37) 34 g/dL (31-37) Red Cell Distribution Width 13.6 % (11.5-14.5) 13.7 % (11.5-14.5) Platelet Count 401 x10^3/uL (140-400) 321 x10^3/uL (140-400) Neutrophils (%) (Auto) 66 % (31-73) 64 % (31-73) Lymphocytes (%) (Auto) 27 % (24-48) 27 % (24-48) Monocytes (%) (Auto) 7 % (0-9) 8 % (0-9) Eosinophils (%) (Auto) 1 % (0-3) 1 % (0-3) Basophils (%) (Auto) 1 % (0-3) 0 % (0-3) Neutrophils # (Auto) 9.9 x10^3/uL (1.8-7.7) 6.7 x10^3/uL (1.8-7.7) Lymphocytes # (Auto) 4.0 x10^3/uL (1.0-4.8) 2.8 x10^3/uL (1.0-4.8) Monocytes # (Auto) 1.0 x10^3/uL (0.0-1.1) 0.9 x10^3/uL (0.0-1.1) Eosinophils # (Auto) 0.1 x10^3/uL (0.0-0.7) 0.1 x10^3/uL (0.0-0.7) Basophils # (Auto) 0.1 x10^3/uL (0.0-0.2) 0.0 x10^3/uL (0.0-0.2) Maternal Serum HCG Beta Subunit 6360 mIU/mL (0-5) Sodium Level 134 mmol/L (136-145) 136 mmol/L (136-145) Potassium Level 3.7 mmol/L (3.5-5.1) 3.3 mmol/L (3.5-5.1) Chloride Level 100 mmol/L (98-107) 104 mmol/L (98-107) Carbon Dioxide Level 21 mmol/L (21-32) 24 mmol/L (21-32) Anion Gap 13 (6-14) 8 (6-14) Blood Urea Nitrogen 6 mg/dL (7-20) 4 mg/dL (7-20) Creatinine 0.7 mg/dL (0.6-1.0) 0.5 mg/dL (0.6-1.0) Estimated GFR (Cockcroft-Gault) 101.1 149.1 BUN/Creatinine Ratio 9 (6-20) Glucose Level 116 mg/dL (70-99) 93 mg/dL (70-99) Calcium Level 9.0 mg/dL (8.5-10.1) 8.3 mg/dL (8.5-10.1) Magnesium Level 2.4 mg/dL (1.8-2.4) 2.3 mg/dL (1.8-2.4) Total Bilirubin 0.2 mg/dL (0.2-1.0) Aspartate Amino Transf (AST/SGOT) 21 U/L (15-37) Alanine Aminotransferase (ALT/SGPT) 40 U/L (14-59) Alkaline Phosphatase 57 U/L (46-116) Total Protein 7.8 g/dL (6.4-8.2) Albumin 3.9 g/dL (3.4-5.0) Albumin/Globulin Ratio 1.0 (1.0-1.7) Bedside Urine HCG, Qualitative Hcg positive (Negative) Phosphorus Level 2.9 mg/dL (2.6-4.7) Laboratory Tests Test 01/30/20 07:10 White Blood Count 10.5 x10^3/uL (4.0-11.0) Red Blood Count 4.11 x10^6/uL (3.50-5.40) Hemoglobin 12.3 g/dL (12.0-15.5) Hematocrit 36.7 % (36.0-47.0) Mean Corpuscular Volume 89 fL (79-100) Mean Corpuscular Hemoglobin 30 pg (25-35) Mean Corpuscular Hemoglobin Concent 34 g/dL (31-37) Red Cell Distribution Width 13.7 % (11.5-14.5) Platelet Count 321 x10^3/uL (140-400) Neutrophils (%) (Auto) 64 % (31-73) Lymphocytes (%) (Auto) 27 % (24-48) Monocytes (%) (Auto) 8 % (0-9) Eosinophils (%) (Auto) 1 % (0-3) Basophils (%) (Auto) 0 % (0-3) Neutrophils # (Auto) 6.7 x10^3/uL (1.8-7.7) Lymphocytes # (Auto) 2.8 x10^3/uL (1.0-4.8) Monocytes # (Auto) 0.9 x10^3/uL (0.0-1.1) Eosinophils # (Auto) 0.1 x10^3/uL (0.0-0.7) Basophils # (Auto) 0.0 x10^3/uL (0.0-0.2) Sodium Level 136 mmol/L (136-145) Potassium Level 3.3 mmol/L (3.5-5.1) Chloride Level 104 mmol/L (98-107) Carbon Dioxide Level 24 mmol/L (21-32) Anion Gap 8 (6-14) Blood Urea Nitrogen 4 mg/dL (7-20) Creatinine 0.5 mg/dL (0.6-1.0) Estimated GFR (Cockcroft-Gault) 149.1 Glucose Level 93 mg/dL (70-99) Calcium Level 8.3 mg/dL (8.5-10.1) Phosphorus Level 2.9 mg/dL (2.6-4.7) Magnesium Level 2.3 mg/dL (1.8-2.4) Medications Current Medications Sodium Chloride 1,000 ml @ 1,000 mls/hr 1X ONCE IV Last administered on 01/29/20at 08:16; Start 01/29/20 at 06:45; Stop 01/29/20 at 07:44; Status DC Lorazepam (Ativan Inj) 4 mg 1X ONCE IVP Last administered on 01/29/20at 08:10; Start 01/29/20 at 08:15; Stop 01/29/20 at 08:17; Status DC Levetiracetam 500 mg/Dextrose 105 ml @ 420 mls/hr Q12HR IV ; Start 01/29/20 at 21:00; Stop 01/29/20 at 12:49; Status DC Levetiracetam 500 mg/Dextrose 105 ml @ 420 mls/hr 1X ONCE IV Last administered on 01/29/20at 09:57; Start 01/29/20 at 10:00; Stop 01/29/20 at 10:14; Status DC Ondansetron HCl (Zofran) 4 mg PRN Q8HRS PRN IV NAUSEA/VOMITING; Start 01/29/20 at 09:45; Stop 01/30/20 at 09:44 Acetaminophen (Tylenol) 650 mg PRN Q4HRS PRN PO FEVER > 100.3'F; Start 01/29/20 at 09:45; Stop 01/30/20 at 09:44 Sennosides (Senna) 17.2 mg PRN BID PRN PO CONSTIPATION; Start 01/29/20 at 11:30 Docusate Sodium (Colace) 100 mg PRN DAILY PRN PO HARD STOOLS; Start 01/29/20 at 11:30 Ondansetron HCl (Zofran) 4 mg PRN Q6HRS PRN IVP NAUSEA/VOMITING; Start 01/29/20 at 11:30 Dextrose (Dextrose 50%-Water Syringe) 12.5 gm PRN Q15MIN PRN IV SEE COMMENTS; Start 01/29/20 at 11:30 Dextrose/Sodium Chloride 1,000 ml @ 100 mls/hr Q10H IV Last administered on 01/29/20at 20:01; Start 01/29/20 at 11:20 Acetaminophen (Tylenol) 650 mg PRN Q4HRS PRN PO TEMP OVER 100.4F OR MILD PAIN; Start 01/29/20 at 11:30 Lorazepam (Ativan Inj) 4 mg PRN Q4HRS PRN IVP SEIZURE; Start 01/29/20 at 11:30 Levetiracetam (Keppra) 500 mg BID PO Last administered on 01/30/20at 07:55; Start 01/29/20 at 21:00 Active Scripts Active Reported Cetirizine Hcl 10 Mg Tablet 1 Tab PO DAILY Multi Tablet (Pnv No.122/Iron/Folic Acid) 1 Each Tablet 1 Tab PO DAILY 30 Days Famotidine 20 Mg Tablet 20 Mg PO DAILY Cyclobenzaprine Hcl 10 Mg Tablet 10 Mg PO TID Metformin Hcl 500 Mg Tablet 500 Mg PO QIDACHS Venlafaxine Hcl 75 Mg Tablet 75 Mg PO DAILY Buspirone Hcl 10 Mg Tablet 1 Tab PO BID Vitals/I & O Vital Sign - Last 24 Hours 01/29/20 01/29/20 01/29/20 01/29/20 08:44 09:14 09:44 10:14 Pulse 118 112 112 108 Resp 20 Pulse Ox 96 97 100 100 01/29/20 01/29/20 01/29/20 01/29/20 10:44 11:14 11:44 12:14 Pulse 104 120 106 116 Resp 20 Pulse Ox 97 98 96 97 01/29/20 01/29/20 01/29/20 01/29/20 12:44 15:00 15:00 19:00 Temp 98.4 98.8 98.4 98.8 Pulse 108 97 101 Resp 18 16 B/P (MAP) 125/64 (84) 120/62 (81) Pulse Ox 98 99 97 O2 Delivery Room Air Room Air 01/29/20 01/30/20 01/30/20 23:00 03:00 07:38 Temp 98.2 98.6 98.5 98.2 98.6 98.5 Pulse 97 66 88 Resp 18 16 18 B/P (MAP) 110/47 (68) 112/53 (72) 121/68 (85) Pulse Ox 98 97 99 O2 Delivery Room Air Intake and Output 01/29/20 01/29/20 01/30/20 15:00 23:00 07:00 Intake Total 1100 ml Balance 1100 ml Justicifation of Admission Dx: Justifications for Admission: Justification of Admission Dx: No Comments: SEIZURE HERMES BENAVIDES MD Jan 30, 2020 08:23
[2020-01-30] MEDS ORDERED: POTASSIUM CHLORIDE 20 MEQ TABLET.ER. PO ONE (08:30)
[2020-01-30 11:09] VITALS: BP 143/84
--- NOTE | 2020-01-30 12:01 | PDOC ---
PROGRESS NOTES Date of Service DATE: 01/30/20 TIME: 11:59 Assessment Problems Medical Problems: (1) Status: Acute (2) Seizure grand mal Status: Acute New onset of seizures, no obvious cause, doubt that this is -related. Consider role of marijuana. EEG is normal Plan Continue levetiracetam, re-discussed risk, benefits, alternatives, especially in relation to . MRI of the brain, after she has finished the first trimester Again discussed seizure precautions including no driving for 6 months. I discussed that marijuana can sometimes cause seizures. Okay for discharge Discussed with Dr. Peace Subjective No complaints, wants to go home Objective Vital Signs Date Time Temp Pulse Resp B/P (MAP) Pulse Ox O2 Delivery O2 Flow Rate FiO2 01/30/20 11:09 98.9 94 20 143/84 (103) 98 Room Air 98.9 Intake and Output 01/30/20 07:00 Intake Total 1100 ml Balance 1100 ml IV Total 1100 ml # Voids 5 PHYSICAL EXAM Alert. Oriented to time, place and person. PERRL. EOMI. CN: no focal findings. Muscle tone: normal. Muscle strength: 5/5 DTR: 2+ Plantar reflex: Flexor Gait: Normal. Sensory exam: no abnormal findings. No cerebellar signs elicited. Review of Relevant I have reviewed the following items viridiana (where applicable) has been applied. Labs Laboratory Tests Test 01/29/20 06:30 01/29/20 06:45 01/29/20 06:52 01/30/20 07:10 Urine Collection Type Unknown Urine Color Yellow Urine Clarity Clear Urine pH 5.5 (<5.0-8.0) Urine Specific [place] 1.020 (1.000-1.030) Urine Protein 30 mg/dL (NEG-TRACE) Urine Glucose (UA) Negative mg/dL (NEG) Urine Ketones (Stick) Trace mg/dL (NEG) Urine Blood Negative (NEG) Urine Nitrite Negative (NEG) Urine Bilirubin Negative (NEG) Urine Urobilinogen Dipstick 0.2 mg/dL (0.2 mg/dL) Urine Leukocyte Esterase Negative (NEG) Urine RBC 0 /HPF (0-2) Urine WBC Occ /HPF (0-4) Urine Squamous Epithelial Cells Few /LPF Urine Bacteria 0 /HPF (0-FEW) Urine Mucus Mod /LPF Urine Opiates Screen Neg (NEG) Urine Methadone Screen Neg (NEG) Urine Barbiturates Neg (NEG) Urine Phencyclidine Screen Neg (NEG) Urine Amphetamine/Methamphetamine Neg (NEG) Urine Benzodiazepines Screen Neg (NEG) Urine Cocaine Screen Neg (NEG) Urine Cannabinoids Screen Pos (NEG) Urine Ethyl Alcohol Neg (NEG) White Blood Count 15.1 x10^3/uL (4.0-11.0) 10.5 x10^3/uL (4.0-11.0) Red Blood Count 4.67 x10^6/uL (3.50-5.40) 4.11 x10^6/uL (3.50-5.40) Hemoglobin 13.8 g/dL (12.0-15.5) 12.3 g/dL (12.0-15.5) Hematocrit 42.2 % (36.0-47.0) 36.7 % (36.0-47.0) Mean Corpuscular Volume 90 fL (79-100) 89 fL (79-100) Mean Corpuscular Hemoglobin 30 pg (25-35) 30 pg (25-35) Mean Corpuscular Hemoglobin Concent 33 g/dL (31-37) 34 g/dL (31-37) Red Cell Distribution Width 13.6 % (11.5-14.5) 13.7 % (11.5-14.5) Platelet Count 401 x10^3/uL (140-400) 321 x10^3/uL (140-400) Neutrophils (%) (Auto) 66 % (31-73) 64 % (31-73) Lymphocytes (%) (Auto) 27 % (24-48) 27 % (24-48) Monocytes (%) (Auto) 7 % (0-9) 8 % (0-9) Eosinophils (%) (Auto) 1 % (0-3) 1 % (0-3) Basophils (%) (Auto) 1 % (0-3) 0 % (0-3) Neutrophils # (Auto) 9.9 x10^3/uL (1.8-7.7) 6.7 x10^3/uL (1.8-7.7) Lymphocytes # (Auto) 4.0 x10^3/uL (1.0-4.8) 2.8 x10^3/uL (1.0-4.8) Monocytes # (Auto) 1.0 x10^3/uL (0.0-1.1) 0.9 x10^3/uL (0.0-1.1) Eosinophils # (Auto) 0.1 x10^3/uL (0.0-0.7) 0.1 x10^3/uL (0.0-0.7) Basophils # (Auto) 0.1 x10^3/uL (0.0-0.2) 0.0 x10^3/uL (0.0-0.2) Maternal Serum HCG Beta Subunit 6360 mIU/mL (0-5) Sodium Level 134 mmol/L (136-145) 136 mmol/L (136-145) Potassium Level 3.7 mmol/L (3.5-5.1) 3.3 mmol/L (3.5-5.1) Chloride Level 100 mmol/L (98-107) 104 mmol/L (98-107) Carbon Dioxide Level 21 mmol/L (21-32) 24 mmol/L (21-32) Anion Gap 13 (6-14) 8 (6-14) Blood Urea Nitrogen 6 mg/dL (7-20) 4 mg/dL (7-20) Creatinine 0.7 mg/dL (0.6-1.0) 0.5 mg/dL (0.6-1.0) Estimated GFR (Cockcroft-Gault) 101.1 149.1 BUN/Creatinine Ratio 9 (6-20) Glucose Level 116 mg/dL (70-99) 93 mg/dL (70-99) Calcium Level 9.0 mg/dL (8.5-10.1) 8.3 mg/dL (8.5-10.1) Magnesium Level 2.4 mg/dL (1.8-2.4) 2.3 mg/dL (1.8-2.4) Total Bilirubin 0.2 mg/dL (0.2-1.0) Aspartate Amino Transf (AST/SGOT) 21 U/L (15-37) Alanine Aminotransferase (ALT/SGPT) 40 U/L (14-59) Alkaline Phosphatase 57 U/L (46-116) Total Protein 7.8 g/dL (6.4-8.2) Albumin 3.9 g/dL (3.4-5.0) Albumin/Globulin Ratio 1.0 (1.0-1.7) Bedside Urine HCG, Qualitative Hcg positive (Negative) Phosphorus Level 2.9 mg/dL (2.6-4.7) Laboratory Tests Test 01/30/20 07:10 White Blood Count 10.5 x10^3/uL (4.0-11.0) Red Blood Count 4.11 x10^6/uL (3.50-5.40) Hemoglobin 12.3 g/dL (12.0-15.5) Hematocrit 36.7 % (36.0-47.0) Mean Corpuscular Volume 89 fL (79-100) Mean Corpuscular Hemoglobin 30 pg (25-35) Mean Corpuscular Hemoglobin Concent 34 g/dL (31-37) Red Cell Distribution Width 13.7 % (11.5-14.5) Platelet Count 321 x10^3/uL (140-400) Neutrophils (%) (Auto) 64 % (31-73) Lymphocytes (%) (Auto) 27 % (24-48) Monocytes (%) (Auto) 8 % (0-9) Eosinophils (%) (Auto) 1 % (0-3) Basophils (%) (Auto) 0 % (0-3) Neutrophils # (Auto) 6.7 x10^3/uL (1.8-7.7) Lymphocytes # (Auto) 2.8 x10^3/uL (1.0-4.8) Monocytes # (Auto) 0.9 x10^3/uL (0.0-1.1) Eosinophils # (Auto) 0.1 x10^3/uL (0.0-0.7) Basophils # (Auto) 0.0 x10^3/uL (0.0-0.2) Sodium Level 136 mmol/L (136-145) Potassium Level 3.3 mmol/L (3.5-5.1) Chloride Level 104 mmol/L (98-107) Carbon Dioxide Level 24 mmol/L (21-32) Anion Gap 8 (6-14) Blood Urea Nitrogen 4 mg/dL (7-20) Creatinine 0.5 mg/dL (0.6-1.0) Estimated GFR (Cockcroft-Gault) 149.1 Glucose Level 93 mg/dL (70-99) Calcium Level 8.3 mg/dL (8.5-10.1) Phosphorus Level 2.9 mg/dL (2.6-4.7) Magnesium Level 2.3 mg/dL (1.8-2.4) Medications Current Medications Sodium Chloride 1,000 ml @ 1,000 mls/hr 1X ONCE IV Last administered on 01/29/20at 08:16; Start 01/29/20 at 06:45; Stop 01/29/20 at 07:44; Status DC Lorazepam (Ativan Inj) 4 mg 1X ONCE IVP Last administered on 01/29/20at 08:10; Start 01/29/20 at 08:15; Stop 01/29/20 at 08:17; Status DC Levetiracetam 500 mg/Dextrose 105 ml @ 420 mls/hr Q12HR IV ; Start 01/29/20 at 21:00; Stop 01/29/20 at 12:49; Status DC Levetiracetam 500 mg/Dextrose 105 ml @ 420 mls/hr 1X ONCE IV Last administered on 01/29/20at 09:57; Start 01/29/20 at 10:00; Stop 01/29/20 at 10:14; Status DC Ondansetron HCl (Zofran) 4 mg PRN Q8HRS PRN IV NAUSEA/VOMITING; Start 01/29/20 at 09:45; Stop 01/30/20 at 09:44; Status DC Acetaminophen (Tylenol) 650 mg PRN Q4HRS PRN PO FEVER > 100.3'F; Start 01/29/20 at 09:45; Stop 01/30/20 at 09:44; Status DC Sennosides (Senna) 17.2 mg PRN BID PRN PO CONSTIPATION; Start 01/29/20 at 11:30 Docusate Sodium (Colace) 100 mg PRN DAILY PRN PO HARD STOOLS; Start 01/29/20 at 11:30 Ondansetron HCl (Zofran) 4 mg PRN Q6HRS PRN IVP NAUSEA/VOMITING; Start 01/29/20 at 11:30 Dextrose (Dextrose 50%-Water Syringe) 12.5 gm PRN Q15MIN PRN IV SEE COMMENTS; Start 01/29/20 at 11:30 Dextrose/Sodium Chloride 1,000 ml @ 100 mls/hr Q10H IV Last administered on 01/29/20at 20:01; Start 01/29/20 at 11:20; Stop 01/30/20 at 09:26; Status DC Acetaminophen (Tylenol) 650 mg PRN Q4HRS PRN PO TEMP OVER 100.4F OR MILD PAIN; Start 01/29/20 at 11:30 Lorazepam (Ativan Inj) 4 mg PRN Q4HRS PRN IVP SEIZURE; Start 01/29/20 at 11:30 Levetiracetam (Keppra) 500 mg BID PO Last administered on 01/30/20at 07:55; Start 01/29/20 at 21:00 Potassium Chloride (Klor-Con) 40 meq 1X ONCE PO Last administered on 01/30/20at 10:45; Start 01/30/20 at 08:30; Stop 01/30/20 at 08:32; Status DC Potassium Chloride (Klor-Con) 20 meq [id number] PO ; Start 01/31/20 at 08:00 Active Scripts Active Reported Cetirizine Hcl 10 Mg Tablet 1 Tab PO DAILY Multi Tablet (Pnv No.122/Iron/Folic Acid) 1 Each Tablet 1 Tab PO DAILY 30 Days Famotidine 20 Mg Tablet 20 Mg PO DAILY Cyclobenzaprine Hcl 10 Mg Tablet 10 Mg PO TID Metformin Hcl 500 Mg Tablet 500 Mg PO QIDACHS Venlafaxine Hcl 75 Mg Tablet 75 Mg PO DAILY Buspirone Hcl 10 Mg Tablet 1 Tab PO BID Vitals/I & O Vital Sign - Last 24 Hours 01/29/20 01/29/20 01/29/20 01/29/20 12:14 12:44 15:00 15:00 Temp 98.4 98.4 Pulse 116 108 97 Resp 20 18 B/P (MAP) 125/64 (84) Pulse Ox 97 98 99 O2 Delivery Room Air Room Air 01/29/20 01/29/20 01/30/20 01/30/20 19:00 23:00 03:00 07:38 Temp 98.8 98.2 98.6 98.5 98.8 98.2 98.6 98.5 Pulse 101 97 66 88 Resp 16 18 16 18 B/P (MAP) 120/62 (81) 110/47 (68) 112/53 (72) 121/68 (85) Pulse Ox 97 98 97 99 O2 Delivery Room Air 01/30/20 01/30/20 08:00 11:09 Temp 98.9 98.9 Pulse 94 Resp 20 B/P (MAP) 143/84 (103) Pulse Ox 98 O2 Delivery Room Air Room Air Intake and Output 01/29/20 01/29/20 01/30/20 15:00 23:00 07:00 Intake Total 1100 ml Balance 1100 ml Justicifation of Admission Dx: Justifications for Admission: Justification of Admission Dx: Yes Altered Mental Status: Altered Mental Status Comments: new seizures in a patient CECILIO MAR MD Jan 30, 2020 12:01
--- NOTE | 2020-01-30 12:16 | NUR ---
SW following. Discussed with RN, pt from home in [place], [place], room air, regular diet. Neuro following - okay for discharge, pt wants to go home. Pt is 6 weeks , educated on risk of marijuana vape use/ abuse. RN advised no SW needs, anticipate possible discharge home today. Pt has no insurance - [facility] following. SW will continue to follow.
--- NOTE | 2020-01-30 12:41 | PDOC3 ---
Discharge Summary Date of Admission: Jan 29, 2020 Date of Discharge: Jan 30, 2020 Follow-Up: 3-5 days Admitting Diagnosis comment: discharge dx Assessment/Plan Status epilepticus likely due to synthetic marijuana Cannabinoid abuse First trimester hypokalemia on replacement plan Admit to medicine Neurology consult IV Keppra loading dose and maintenance Ambulation for DVT prophylaxis Protonix GI prophylaxis ADA diet Full code Discussed with RN and SW Disposition pending neurology evaluation Surrogate decision maker is Carline Shea DISCUSSED NEED TO STOP THC USE NO DRIVING D/C PLANNING 35 MIN Justifications for Admission Justifications for Admission Other Justification Seizure History of Present Illness History of Present Illness History of Present Illness: HPI: 24 year old female at approximately 6 weeks gestational age with the first . Per grandmother she had a witnessed seizure-like activity just prior to arrival. Patient has no seizure history, no history of traumatic brain injury, no recent illness.. Per EMS the patient was postictal on arrival. She is recently , has a history of PCOS and takes Metformin. Patient had second seizure in emergency department approximately 1 hour after arrival. Patient had told her grandmother that her left leg felt weird and then her head felt weird and then began seizing for about 15 to 30 seconds. Was again postictal afterwards. Episode witnessed by nursing consistent with grand mal seizure. Keppra IV loading dose was given in the ED. And neurology was consulted. Seizure precaution was activated. When further questioned patient stated that she does not remember having any seizures in the past and is unsure whether she has a history of them as well. When asked about her marijuana use, patient states that she does use a vape pen with oils but is unsure whether the marijuana is synthetic or natural. Past Medical/Surgical History: PMH/PSH: Past Medical History: Anxiety, Depression, GERD, PCOS Past Surgical History: Tonsillectomy, Pelvis Fx repair Allergies: Allergies: Coded Allergies: No Known Drug Allergies (Unverified , 01/29/20) Family History: Family History: Reviewed and no relevant findings Social History: Social History: Smoking Status: Never Smoker, Cannabinoid use via Vape pen Alcohol Use: None Vitals Vitals Vital Signs Date Time Temp Pulse Resp B/P (MAP) Pulse Ox O2 Delivery O2 Flow Rate FiO2 01/30/20 07:38 98.5 88 18 121/68 (85) 99 Room Air 98.5 Physical Exam Physical Exam Physcial Exam: GEN: No apparent distress. Alert and oriented HEENT: Normal cephalic, atraumatic, external auditory canals are patent EYES: Extraocular muscles are intact, pupil are equally round and reactive to light and accommodation MUSCULOSKELETAL: Well developed , well nourished, good range of motion ENDOCRINE: No thyromegaly was palpated LYMPHATICS: No cervical chain or axillary nodes were noted HEMATOPOIETIC: No bruising NECK: Supple, no JVD, no thyromegaly was noted LUNGS: Clear to auscultation in all lung corral without rhonchi or wheezing HEART: RRR, S!, S2 present. Peripheral pulses intact, no obvious murmurs noted ABDOMEN: Soft, nontender. Positive bowel sounds, no organomegaly, normal bowel sounds EXTREMITIES: Without clubbing, cyanosis, or edema. Pedal pulses intact. Negative Homans sign NEUROLOGIC: Normal speech and tone. A&O x 3, moves all extremities, no obvious focal deficits PSYCHIATRIC: Normal affect, normal mood. Stable SKIN: No ulcerations or rashes, good skin turgor, no jaundice VASCULAR: Good capillary refill, neurovascular bundle appears to be intact General: Alert, Oriented X3, Cooperative, No acute distress Heart: Regular rate, No murmurs Lungs: Clear Abdomen: Normal bowel sounds, Soft Extremities: No cyanosis Labs LABS CT HEAD WO CONTRAST Date: 01/29/2020 6:33 AM Clinical Indication: seizure Comparison: None. Technique: 5 mm axial tomographic images were obtained of the head without contrast. These were viewed on brain and bone windows. One or more of the following dose reduction techniques were utilized: Automated exposure control (AEC), Adjustment of mA and/or kV according to patient size, Use of iterative reconstruction technique such as ASiR, CT scan done according to ALARA and image gently/image wisely Findings: The brain parenchyma is normal in attenuation. No intra- or extra-axial mass or fluid collection. No acute hemorrhage. The ventricles are normal in size, shape, and morphology. The keenan-white matter junction is normal. The subarachnoid cisterns are patent. The visualized paranasal sinuses are normal. The visualized portions of the orbits and globes are normal. The mastoid air cells are clear. The flight simulator teacher topogram shows no lytic lesion or fracture. Impression: No acute intracranial process. Electronically signed by: Donavon Sanchez MD (01/29/2020 8:19 AM) [id number] FINAL DIAGNOSIS Problems Medical Problems: (1) Status: Acute (2) Seizure grand mal Status: Acute Brief Hospital Course Ms. Collins is a 24 old [sex] who presented with [ ACUTE SEIZURE] CONDITION AT DISCHARGE: Improved Discharge Medications Current Medications Sodium Chloride 1,000 ml @ 1,000 mls/hr 1X ONCE IV Last administered on 01/29/20at 08:16; Start 01/29/20 at 06:45; Stop 01/29/20 at 07:44; Status DC Lorazepam (Ativan Inj) 4 mg 1X ONCE IVP Last administered on 01/29/20at 08:10; Start 01/29/20 at 08:15; Stop 01/29/20 at 08:17; Status DC Levetiracetam 500 mg/Dextrose 105 ml @ 420 mls/hr Q12HR IV ; Start 01/29/20 at 21:00; Stop 01/29/20 at 12:49; Status DC Levetiracetam 500 mg/Dextrose 105 ml @ 420 mls/hr 1X ONCE IV Last administered on 01/29/20at 09:57; Start 01/29/20 at 10:00; Stop 01/29/20 at 10:14; Status DC Ondansetron HCl (Zofran) 4 mg PRN Q8HRS PRN IV NAUSEA/VOMITING; Start 01/29/20 at 09:45; Stop 01/30/20 at 09:44; Status DC Acetaminophen (Tylenol) 650 mg PRN Q4HRS PRN PO FEVER > 100.3'F; Start 01/29/20 at 09:45; Stop 01/30/20 at 09:44; Status DC Sennosides (Senna) 17.2 mg PRN BID PRN PO CONSTIPATION; Start 01/29/20 at 11:30 Docusate Sodium (Colace) 100 mg PRN DAILY PRN PO HARD STOOLS; Start 01/29/20 at 11:30 Ondansetron HCl (Zofran) 4 mg PRN Q6HRS PRN IVP NAUSEA/VOMITING; Start 01/29/20 at 11:30 Dextrose (Dextrose 50%-Water Syringe) 12.5 gm PRN Q15MIN PRN IV SEE COMMENTS; Start 01/29/20 at 11:30 Dextrose/Sodium Chloride 1,000 ml @ 100 mls/hr Q10H IV Last administered on 01/29/20at 20:01; Start 01/29/20 at 11:20; Stop 01/30/20 at 09:26; Status DC Acetaminophen (Tylenol) 650 mg PRN Q4HRS PRN PO TEMP OVER 100.4F OR MILD PAIN; Start 01/29/20 at 11:30 Lorazepam (Ativan Inj) 4 mg PRN Q4HRS PRN IVP SEIZURE; Start 01/29/20 at 11:30 Levetiracetam (Keppra) 500 mg BID PO Last administered on 01/30/20at 07:55; Start 01/29/20 at 21:00 Potassium Chloride (Klor-Con) 40 meq 1X ONCE PO Last administered on 01/30/20at 10:45; Start 01/30/20 at 08:30; Stop 01/30/20 at 08:32; Status DC Potassium Chloride (Klor-Con) 20 meq [id number] PO ; Start 01/31/20 at 08:00 Active Scripts Active Reported Cetirizine Hcl 10 Mg Tablet 1 Tab PO DAILY Multi Tablet (Pnv No.122/Iron/Folic Acid) 1 Each Tablet 1 Tab PO DAILY 30 Days Famotidine 20 Mg Tablet 20 Mg PO DAILY Cyclobenzaprine Hcl 10 Mg Tablet 10 Mg PO TID Metformin Hcl 500 Mg Tablet 500 Mg PO QIDACHS Venlafaxine Hcl 75 Mg Tablet 75 Mg PO DAILY Buspirone Hcl 10 Mg Tablet 1 Tab PO BID Vital Signs Vital Signs Date Time Temp Pulse Resp B/P (MAP) Pulse Ox O2 Delivery O2 Flow Rate FiO2 01/30/20 11:09 98.9 94 20 143/84 (103) 98 Room Air 98.9 Labs Laboratory Tests Test 01/29/20 06:30 01/29/20 06:45 01/29/20 06:52 01/30/20 07:10 Urine Collection Type Unknown Urine Color Yellow Urine Clarity Clear Urine pH 5.5 (<5.0-8.0) Urine Specific Lacey 1.020 (1.000-1.030) Urine Protein 30 mg/dL (NEG-TRACE) Urine Glucose (UA) Negative mg/dL (NEG) Urine Ketones (Stick) Trace mg/dL (NEG) Urine Blood Negative (NEG) Urine Nitrite Negative (NEG) Urine Bilirubin Negative (NEG) Urine Urobilinogen Dipstick 0.2 mg/dL (0.2 mg/dL) Urine Leukocyte Esterase Negative (NEG) Urine RBC 0 /HPF (0-2) Urine WBC Occ /HPF (0-4) Urine Squamous Epithelial Cells Few /LPF Urine Bacteria 0 /HPF (0-FEW) Urine Mucus Mod /LPF Urine Opiates Screen Neg (NEG) Urine Methadone Screen Neg (NEG) Urine Barbiturates Neg (NEG) Urine Phencyclidine Screen Neg (NEG) Urine Amphetamine/Methamphetamine Neg (NEG) Urine Benzodiazepines Screen Neg (NEG) Urine Cocaine Screen Neg (NEG) Urine Cannabinoids Screen Pos (NEG) Urine Ethyl Alcohol Neg (NEG) White Blood Count 15.1 x10^3/uL (4.0-11.0) 10.5 x10^3/uL (4.0-11.0) Red Blood Count 4.67 x10^6/uL (3.50-5.40) 4.11 x10^6/uL (3.50-5.40) Hemoglobin 13.8 g/dL (12.0-15.5) 12.3 g/dL (12.0-15.5) Hematocrit 42.2 % (36.0-47.0) 36.7 % (36.0-47.0) Mean Corpuscular Volume 90 fL (79-100) 89 fL (79-100) Mean Corpuscular Hemoglobin 30 pg (25-35) 30 pg (25-35) Mean Corpuscular Hemoglobin Concent 33 g/dL (31-37) 34 g/dL (31-37) Red Cell Distribution Width 13.6 % (11.5-14.5) 13.7 % (11.5-14.5) Platelet Count 401 x10^3/uL (140-400) 321 x10^3/uL (140-400) Neutrophils (%) (Auto) 66 % (31-73) 64 % (31-73) Lymphocytes (%) (Auto) 27 % (24-48) 27 % (24-48) Monocytes (%) (Auto) 7 % (0-9) 8 % (0-9) Eosinophils (%) (Auto) 1 % (0-3) 1 % (0-3) Basophils (%) (Auto) 1 % (0-3) 0 % (0-3) Neutrophils # (Auto) 9.9 x10^3/uL (1.8-7.7) 6.7 x10^3/uL (1.8-7.7) Lymphocytes # (Auto) 4.0 x10^3/uL (1.0-4.8) 2.8 x10^3/uL (1.0-4.8) Monocytes # (Auto) 1.0 x10^3/uL (0.0-1.1) 0.9 x10^3/uL (0.0-1.1) Eosinophils # (Auto) 0.1 x10^3/uL (0.0-0.7) 0.1 x10^3/uL (0.0-0.7) Basophils # (Auto) 0.1 x10^3/uL (0.0-0.2) 0.0 x10^3/uL (0.0-0.2) Maternal Serum HCG Beta Subunit 6360 mIU/mL (0-5) Sodium Level 134 mmol/L (136-145) 136 mmol/L (136-145) Potassium Level 3.7 mmol/L (3.5-5.1) 3.3 mmol/L (3.5-5.1) Chloride Level 100 mmol/L (98-107) 104 mmol/L (98-107) Carbon Dioxide Level 21 mmol/L (21-32) 24 mmol/L (21-32) Anion Gap 13 (6-14) 8 (6-14) Blood Urea Nitrogen 6 mg/dL (7-20) 4 mg/dL (7-20) Creatinine 0.7 mg/dL (0.6-1.0) 0.5 mg/dL (0.6-1.0) Estimated GFR (Cockcroft-Gault) 101.1 149.1 BUN/Creatinine Ratio 9 (6-20) Glucose Level 116 mg/dL (70-99) 93 mg/dL (70-99) Calcium Level 9.0 mg/dL (8.5-10.1) 8.3 mg/dL (8.5-10.1) Magnesium Level 2.4 mg/dL (1.8-2.4) 2.3 mg/dL (1.8-2.4) Total Bilirubin 0.2 mg/dL (0.2-1.0) Aspartate Amino Transf (AST/SGOT) 21 U/L (15-37) Alanine Aminotransferase (ALT/SGPT) 40 U/L (14-59) Alkaline Phosphatase 57 U/L (46-116) Total Protein 7.8 g/dL (6.4-8.2) Albumin 3.9 g/dL (3.4-5.0) Albumin/Globulin Ratio 1.0 (1.0-1.7) Bedside Urine HCG, Qualitative Hcg positive (Negative) Phosphorus Level 2.9 mg/dL (2.6-4.7) Laboratory Tests Test 01/30/20 07:10 White Blood Count 10.5 x10^3/uL (4.0-11.0) Red Blood Count 4.11 x10^6/uL (3.50-5.40) Hemoglobin 12.3 g/dL (12.0-15.5) Hematocrit 36.7 % (36.0-47.0) Mean Corpuscular Volume 89 fL (79-100) Mean Corpuscular Hemoglobin 30 pg (25-35) Mean Corpuscular Hemoglobin Concent 34 g/dL (31-37) Red Cell Distribution Width 13.7 % (11.5-14.5) Platelet Count 321 x10^3/uL (140-400) Neutrophils (%) (Auto) 64 % (31-73) Lymphocytes (%) (Auto) 27 % (24-48) Monocytes (%) (Auto) 8 % (0-9) Eosinophils (%) (Auto) 1 % (0-3) Basophils (%) (Auto) 0 % (0-3) Neutrophils # (Auto) 6.7 x10^3/uL (1.8-7.7) Lymphocytes # (Auto) 2.8 x10^3/uL (1.0-4.8) Monocytes # (Auto) 0.9 x10^3/uL (0.0-1.1) Eosinophils # (Auto) 0.1 x10^3/uL (0.0-0.7) Basophils # (Auto) 0.0 x10^3/uL (0.0-0.2) Sodium Level 136 mmol/L (136-145) Potassium Level 3.3 mmol/L (3.5-5.1) Chloride Level 104 mmol/L (98-107) Carbon Dioxide Level 24 mmol/L (21-32) Anion Gap 8 (6-14) Blood Urea Nitrogen 4 mg/dL (7-20) Creatinine 0.5 mg/dL (0.6-1.0) Estimated GFR (Cockcroft-Gault) 149.1 Glucose Level 93 mg/dL (70-99) Calcium Level 8.3 mg/dL (8.5-10.1) Phosphorus Level 2.9 mg/dL (2.6-4.7) Magnesium Level 2.3 mg/dL (1.8-2.4) Allergies Allergies Coded Allergies Type Severity Reaction Last Updated Verified No Known Drug Allergies 01/29/20 No Disposition/Orders: D/C to Home Justicifation of Admission Dx: Justifications for Admission: Justification of Admission Dx: No Altered Mental Status: Altered Mental Status HERMES BENAVIDES MD Jan 30, 2020 12:40
[2020-01-30] MEDS ORDERED: LEVE500T56 PO (12:47)
[2020-01-30] MEDS ORDERED: ACET325T9 PO (12:47)
[2020-01-30] MEDS ORDERED: POTA20TA4 PO (12:47)
--- NOTE | 2020-01-30 12:48 | DISCH ---
DISCHARGE INSTRUCTIONS Condition on Discharge Condition on Discharge: Stable Activity After Discharge Activity Instructions for Disc: Activity as tolerated Driving Instructions after Dis: Do not drive Diet after Discharge Diet after Discharge: Regular Liquid Texture: Thin Liquid Checks after Discharge Checks after discharge: Check blood press - daily Contacting the DRKristi after DC Call your doctor for: If your condition worsens Follow-Up Follow up with: OB TOMORROW Treatment/Equipment after DC Adaptive Equipment Issued: None HERMES BENAVIDES MD Jan 30, 2020 12:48
[2020-01-31] MEDS ORDERED: POTASSIUM CHLORIDE 20 MEQ TABLET.ER. PO SCH (08:00)
--- NOTE | 2020-02-24 10:00 | NUR ---
Levetiracetem started on 01/28 at 0957--stop time 10:30 on 01/28 Dextrose started on 01/28 at 20:01--stop time is 06:00 on 01/29
== END 2020-01-30 14:24 | disposition home or self-care (01) ==
LOC: ER 06:23 → ED HOLD 09:30 → 5 NORTH 13:18
PROVIDERS: ADMIT Internal Medicine; ATTEND Internal Medicine
DX: O99.351 Diseases of the nervous system complicating pregnancy, first trimester (principal); G40.901 Epilepsy, unspecified, not intractable, with status epilepticus; O99.321 Drug use complicating pregnancy, first trimester; F12.10 Cannabis abuse, uncomplicated; F14.10 Cocaine abuse, uncomplicated; F41.9 Anxiety disorder, unspecified; O26.891 Other specified pregnancy related conditions, first trimester; E87.6 Hypokalemia; F17.200 Nicotine dependence, unspecified, uncomplicated; K21.9 Gastro-esophageal reflux disease without esophagitis; F32.9 Major depressive disorder, single episode, unspecified; Z3A.01 Less than 8 weeks gestation of pregnancy; Z90.49 Acquired absence of other specified parts of digestive tract; Z98.890 Other specified postprocedural states; Z79.899 Other long term (current) drug therapy
CPT/HCPCS: 36415; 70450; 80048; 80053; 80307; 81001; 81025; 83735; 84100; 84702; 85025; 93005; 95816; 96361; 96365; 96375; 99285; G0378; J1953; J2060; J7030; J7042; J7060; G0379